=== PATIENT | female | born 1940 | race Caucasian/White ===

== ENCOUNTER 2016-12-21 10:44 | Emergency (ER) | payer MEDICARE ==
[~2016-12-21] VITALS: Ht 160 cm; Wt 67.0 kg
[~2016-12-21 10:44] MED LIST: ALBU8I INH; ALPR.25 PO; ASPI1TAB7 PO; ESTR42.5V VAGINAL; LISI-360 PO; METO50TA PO; SIMV20 PO; SPIRCAP INH
[2016-12-21 10:46] VITALS: BP 204/93; PULSE 59; RESP 16; TEMP 98.4; O2SAT 96
[2016-12-21] MEDS ORDERED: SODIUM CHLORIDE 0.9% FLUSH 10 ML FLUSH IVF PRN (11:45)
[2016-12-21] MEDS ORDERED: SODIUM CHLOR 0.9% 1000 ML INJ 1,000 ML IV ONE (11:45)
--- NOTE | 2016-12-21 11:51 | PD ---
HPI Chief Complaint: Cold / Flu Symptoms Time Seen by Provider: 11:17 Travel History International Travel<30 days: No Contact w/Intl Traveler<30days: No Traveled to known affect area: No History of Present Illness HPI Patient is 76-year-old female with history of anxiety, retention, hyperlipidemia , presents to emergency room with multiple complaints. Patient reports that she has had a subjective low-grade fever as well as nasal congestion, increased pulse rate and dysuria. Reports that she has been having increased watery eyes , reports "my eyes just burn," denies vision changes. Reports that her heart feels as if it's racing - she does have history of anxiety and does take xanax for her anxiety. Reports that she is anxious as she has not been feeling well for the past few weeks and has not been able to see her primary care doctor. Patient denies any sick contacts at this time. Reports that she has been eating and drinking like her normal self. Reports that she has been having intermittent dizziness, denies any chest pain and denies shortness of breath. Patient denies any cough, denies any abdominal pain, nausea or vomiting. Patient reports that she is also noticed dysuria, with urinary urgency and frequency, patient concerned for possible UTI. PFSH Past Medical History Anxiety: Yes Cardiac Catheterization: Yes (8 YRS AGO) Cardiovascular Problems: Yes (HYPERTENSION) High Cholesterol: Yes COPD: Yes Diminished Hearing: No Hypertension: Yes Respiratory: Yes (COPD) Immunizations Current: No ?: Not Past Surgical History Section: Yes (2) Hysterectomy: Yes Other Surgery: Yes (NEGATIVE HEART CATH 5 TO 6 YEARS AGO) Social History Alcohol Use: Yes (SOC) Tobacco Use: No Substance Use: No Allergies-Medications (Allergen,Severity, Reaction): Coded Allergies: No Known Allergies (Unverified , 12/21/16) Reported Meds & Prescriptions Reported Meds & Active Scripts Active Reported Symbicort Inh (Budesonide/Formoterol Fumarate) 160-4.5 Mcg/Act Aero 2 Puff INH DAILY Zocor (Simvastatin) 20 Mg Tab 20 Mg PO HS Lopressor (Metoprolol Tartrate) 50 Mg Tab 50 Mg PO BID Lisinopril 10 Mg Tab 10 Mg PO HS Aspirin Adult Low Strength (Aspirin) 81 Mg Tabdr 81 Mg PO DAILY Alprazolam 0.25 Mg Tab 0.25 Mg PO QID Ventolin Hfa 18 GM Inh (Albuterol Sulfate) 90 Mcg/Act Aer 2 Puff INH Q4H PRN Review of Systems General / Constitutional: Positive: Fever (subjective fevers), No: Chills Eyes: No: Visual changes HENT: Positive: Congestion, No: Headaches, Lightheadedness, Sore Throat, Neck Pain Cardiovascular: Positive: Palpitations, No: Chest Pain or Discomfort Respiratory: No: Cough, Shortness of Breath Gastrointestinal: No: Nausea, Vomiting, Diarrhea, Abdominal Pain Genitourinary: Positive: Urgency, Frequency, Dysuria, No: Nocturia, Hematuria Musculoskeletal: No: Pain Skin: No Rash Neurologic: Positive: Weakness, Dizziness, No: Headache Psychiatric: No: Depression Endocrine: No: Polydipsia Hematologic/Lymphatic: No: Easy Bruising Physical Exam Narrative GENERAL: NAD, Nontoxic SKIN: Focused skin assessment warm/dry. HEAD: Atraumatic. Normocephalic. EYES: Pupils equal and round. No scleral icterus. No injection or drainage. ENT: No nasal bleeding or discharge. Mucous membranes pink and moist. NECK: Trachea midline. No JVD. CARDIOVASCULAR: Regular rate and rhythm. No murmur appreciated. RESPIRATORY: No accessory muscle use. Clear to auscultation. Breath sounds equal bilaterally. GASTROINTESTINAL: Abdomen soft, non-tender, nondistended. Hepatic and splenic margins not palpable. MUSCULOSKELETAL: No obvious deformities. No clubbing. No cyanosis. No edema. NEUROLOGICAL: Awake and alert. No obvious cranial nerve deficits. Motor grossly within normal limits. Normal speech. CN 2-12 grossly intact with no neurological deficits PSYCHIATRIC: Appropriate mood and affect; insight and judgment normal. Data Data Last Documented VS Vital Signs Date Time Temp Pulse Resp B/P (MAP) Pulse Ox O2 Delivery O2 Flow Rate FiO2 12/21/16 10:46 98.4 59 16 204/93 (130) 96 Orders Orders Electrocardiogram (12/21/16 11:34) Complete Blood Count With Diff (12/21/16 11:34) Comprehensive Metabolic Panel (12/21/16 11:34) Influenzae A/B Antigen (12/21/16 11:34) Chest, Single Ap (12/21/16 11:34) Ecg Monitoring (12/21/16 11:34) Iv Access Insert/Monitor (12/21/16 11:34) Oximetry (12/21/16 11:34) Sodium Chloride 0.9% Flush (Ns Flush) (12/21/16 11:45) Urinalysis - C+S If Indicated (12/21/16 11:34) Ct Brain W/O Iv Contrast(Rout) (12/21/16 11:34) Sodium Chlor 0.9% 1000 Ml Inj (Ns 1000 M (12/21/16 11:45) Thyroid Stimulating Hormone (12/21/16 11:34) Labs Laboratory Tests Test 12/21/16 12:05 12/21/16 12:09 Urine Color LIGHT-YELLOW Urine Turbidity CLEAR Urine pH 7.0 Urine Specific [place] 1.010 Urine Protein NEG mg/dL Urine Glucose (UA) NEG mg/dL Urine Ketones NEG mg/dL Urine Occult Blood NEG Urine Nitrite NEG Urine Bilirubin NEG Urine Urobilinogen LESS THAN 2.0 MG/DL Urine Leukocyte Esterase NEG Urine RBC LESS THAN 1 /hpf Microscopic Urinalysis Comment CULT NOT INDICATED White Blood Count 8.3 TH/MM3 Red Blood Count 5.09 MIL/MM3 Hemoglobin 15.9 GM/DL Hematocrit 47.2 % Mean Corpuscular Volume 92.6 FL Mean Corpuscular Hemoglobin 31.2 PG Mean Corpuscular Hemoglobin Concent 33.7 % Red Cell Distribution Width 13.0 % Platelet Count 257 TH/MM3 Mean Platelet Volume 9.2 FL Neutrophils (%) (Auto) 80.4 % Lymphocytes (%) (Auto) 13.1 % Monocytes (%) (Auto) 5.7 % Eosinophils (%) (Auto) 0.4 % Basophils (%) (Auto) 0.4 % Neutrophils # (Auto) 6.6 TH/MM3 Lymphocytes # (Auto) 1.1 TH/MM3 Monocytes # (Auto) 0.5 TH/MM3 Eosinophils # (Auto) 0.0 TH/MM3 Basophils # (Auto) 0.0 TH/MM3 CBC Comment DIFF FINAL Differential Comment Blood Urea Nitrogen 12 MG/DL Creatinine 0.94 MG/DL Random Glucose 101 MG/DL Total Protein 8.4 GM/DL Albumin 4.7 GM/DL Calcium Level 9.7 MG/DL Alkaline Phosphatase 95 U/L Aspartate Amino Transf (AST/SGOT) 22 U/L Alanine Aminotransferase (ALT/SGPT) 28 U/L Total Bilirubin 0.7 MG/DL Sodium Level 138 MEQ/L Potassium Level 3.8 MEQ/L Chloride Level 104 MEQ/L Carbon Dioxide Level 29.8 MEQ/L Anion Gap 4 MEQ/L Estimat Glomerular Filtration Rate 58 ML/MIN Thyroid Stimulating Hormone 3rd Gen 1.200 uIU/ML MDM Medical Decision Making Medical Screen Exam Complete: Yes Emergency Medical Condition: Yes Medical Record Reviewed: Yes Interpretation(s) EKG 1234: Sinus edilia at 57bpm, qt/qtc: 459/425, no acute st or t wave changes Vital Signs Date Time Temp Pulse Resp B/P (MAP) Pulse Ox O2 Delivery O2 Flow Rate FiO2 12/21/16 10:46 98.4 59 16 204/93 (130) 96 Differential Diagnosis Differential includes viral syndrome, influenza, pneumonia, abnormal TSH, anxiety reaction, electrolyte abnormality, tia/cva though unlikely, uti, acs, arrhythmia Narrative Course 76-year-old female who presents to emergency room for evaluation of generalized weakness with low-grade fevers, cold congestion, increased pulse rate and dysuria. Patient was placed on a cardiovascular operating room nurse upon arrival to the emergency room. CT of the head ordered, basic blood work ordered as well as TSH to evaluate her tachycardia and to evaluate for electrolyte abnormalities. UA ordered to evaluate for possible UTI. An IV line was established. Will give IVF and monitor patient. Vital Signs Date Time Temp Pulse Resp B/P (MAP) Pulse Ox O2 Delivery O2 Flow Rate FiO2 12/21/16 10:46 98.4 59 16 204/93 (130) 96 Laboratory Tests Test 12/21/16 12:05 12/21/16 12:09 Urine Color LIGHT-YELLOW (YELLW/STRAW) Urine Turbidity CLEAR (CLEAR) Urine pH 7.0 (5.0-8.5) Urine Specific [place] 1.010 (1.002-1.035) Urine Protein NEG mg/dL (NEG-TRACE) Urine Glucose (UA) NEG mg/dL (NEG) Urine Ketones NEG mg/dL (NEG) Urine Occult Blood NEG (NEG) Urine Nitrite NEG (NEG) Urine Bilirubin NEG (NEG) Urine Urobilinogen LESS THAN 2.0 MG/DL (LESS Urine Leukocyte Esterase NEG (NEG) Urine RBC LESS THAN 1 /hpf (0-3) Microscopic Urinalysis Comment CULT NOT INDICATED White Blood Count 8.3 TH/MM3 (4.0-11.0) Red Blood Count 5.09 MIL/MM3 (4.00-5.30) Hemoglobin 15.9 GM/DL (11.6-15.3) Hematocrit 47.2 % (35.0-46.0) Mean Corpuscular Volume 92.6 FL (80.0-100.0) Mean Corpuscular Hemoglobin 31.2 PG (27.0-34.0) Mean Corpuscular Hemoglobin Concent 33.7 % (32.0-36.0) Red Cell Distribution Width 13.0 % (11.6-17.2) Platelet Count 257 TH/MM3 (150-450) Mean Platelet Volume 9.2 FL (7.0-11.0) Neutrophils (%) (Auto) 80.4 % (16.0-70.0) Lymphocytes (%) (Auto) 13.1 % (9.0-44.0) Monocytes (%) (Auto) 5.7 % (0.0-8.0) Eosinophils (%) (Auto) 0.4 % (0.0-4.0) Basophils (%) (Auto) 0.4 % (0.0-2.0) Neutrophils # (Auto) 6.6 TH/MM3 (1.8-7.7) Lymphocytes # (Auto) 1.1 TH/MM3 (1.0-4.8) Monocytes # (Auto) 0.5 TH/MM3 (0-0.9) Eosinophils # (Auto) 0.0 TH/MM3 (0-0.4) Basophils # (Auto) 0.0 TH/MM3 (0-0.2) CBC Comment DIFF FINAL Differential Comment Blood Urea Nitrogen 12 MG/DL (7-18) Creatinine 0.94 MG/DL (0.50-1.00) Random Glucose 101 MG/DL (74-106) Total Protein 8.4 GM/DL (6.4-8.2) Albumin 4.7 GM/DL (3.4-5.0) Calcium Level 9.7 MG/DL (8.5-10.1) Alkaline Phosphatase 95 U/L (45-117) Aspartate Amino Transf (AST/SGOT) 22 U/L (15-37) Alanine Aminotransferase (ALT/SGPT) 28 U/L (10-53) Total Bilirubin 0.7 MG/DL (0.2-1.0) Sodium Level 138 MEQ/L (136-145) Potassium Level 3.8 MEQ/L (3.5-5.1) Chloride Level 104 MEQ/L (98-107) Carbon Dioxide Level 29.8 MEQ/L (21.0-32.0) Anion Gap 4 MEQ/L (5-15) Estimat Glomerular Filtration Rate 58 ML/MIN (>89) Thyroid Stimulating Hormone 3rd Gen 1.200 uIU/ML (0.358-3.740) Last Impressions Head CT 12/21/161133 Signed Impressions: Service Date/Time: Wednesday, December 21, 2016 12:46 - CONCLUSION: Normal examination. Fernando Rivas MD Chest X-Ray 12/21/161133 Signed Impressions: Service Date/Time: Wednesday, December 21, 2016 11:52 - CONCLUSION: 1. Stable examination with mild biapical hyperinflation but no acute infiltrate. 2. Chondroid type calcification projecting over the proximal right humerus is unchanged and likely benign. Michael Moreno MD Reviewed all labs and all studies with patient in detail, all incidental findings reviewed. She has remained bradycardic and not tachycardic throughout ER visit. Patient with most likely viral syndrome as well as anxiety reaction. Patient at time suffers no medical emergency room, patient will follow up with her primary care doctor and will return to ER as needed. Diagnosis Primary Impression: Viral syndrome Additional Impression: Anxiety Patient Instructions: General Instructions Additional Instructions: Please provide patient with a copy of their lab work and studies at discharge* * Please follow up with your primary care doctor in 2-3 days Return to the ER if symptoms worsen or progress Return to the ER as needed Please drink plenty of fluids Disposition: 01 DISCHARGE HOME Condition: Stable MartinezPolly DO Dec 21, 2016 11:51
--- NOTE | 2016-12-21 12:08 | RADRPT ---
EXAM DATE/TIME: 12/21/2016 11:52 [facility] COMPARISON: CHEST SINGLE AP, October 03, 2013, 21:40. INDICATIONS : fever, short of breath MEDICAL HISTORY : Chronic obstructive pulmonary disease. aortic aneurysm SURGICAL HISTORY : None. ENCOUNTER: Initial ACUITY: 1 day PAIN SCORE: 0/10 LOCATION: Bilateral chest FINDINGS: A single view of the chest demonstrates the lungs to be symmetrically aerated with mild hyperinflatio n in the apices. No confluent infiltrate or effusion. Heart size is upper limits of normal. Osseous s tructures are intact with a benign-appearing chondroid type calcification projecting over the proxima l right humerus. CONCLUSION: 1. Stable examination with mild biapical hyperinflation but no acute infiltrate. 2. Chondroid type calcification projecting over the proximal right humerus is unchanged and likely be nign. Michael Moreno MD on December 21, 2016 at 12:05 Board Certified Radiologist. This report was verified electronically.
[2016-12-21] MEDS ORDERED: ZOCO20TA PO (12:26)
[2016-12-21] MEDS ORDERED: METO-309 PO (12:26)
[2016-12-21] MEDS ORDERED: SYMB160A INH (12:26)
[2016-12-21] MEDS ORDERED: VENTAER INH (12:26)
[2016-12-21] MEDS ORDERED: ASPI1TAB91 PO (12:26)
[2016-12-21] MEDS ORDERED: ALPR0.25 PO (12:26)
[2016-12-21] MEDS ORDERED: LISI10TA3 PO (12:26)
[2016-12-21 12:27] LABS: AUTOMATED NEUTROPHIL # 6.6 TH/MM3 (1.8-7.7); BASOPHIL % 0.4 % (0.0-2.0); EOSINOPHIL % 0.4 % (0.0-4.0); HEMATOCRIT 47.2 % (35.0-46.0); HEMOGLOBIN 15.9 GM/DL (11.6-15.3); LYMPH % 13.1 % (9.0-44.0); LYMPHOCYTE # 1.1 TH/MM3 (1.0-4.8); MEAN CELL VOLUME 92.6 FL (80.0-100.0); MEAN CORPUSCULAR HEMOGLOBIN 31.2 PG (27.0-34.0); MEAN CORPUSCULAR HGB CONC 33.7 % (32.0-36.0); MEAN PLATELET VOLUME 9.2 FL (7.0-11.0); MONO % 5.7 % (0.0-8.0); MONOCYTE # 0.5 TH/MM3 (0-0.9); NEUT % 80.4 % (16.0-70.0); PLATELET COUNT 257 TH/MM3 (150-450); RED BLOOD COUNT 5.09 MIL/MM3 (4.00-5.30); WHITE BLOOD COUNT 8.3 TH/MM3 (4.0-11.0)
[2016-12-21 12:36] LABS: BILIRUBIN, URINE NEG (NEG); BLOOD, URINE NEG (NEG); GLUCOSE,URINE NEG (NEG); KETONE, URINE NEG (NEG); NITRITE,URINE NEG (NEG); URINE COLOR LIGHT-YELLOW (YELLW/STRAW); URINE LEUKOCYTE ESTERASE NEG (NEG)
--- NOTE | 2016-12-21 12:59 | RADRPT ---
EXAM DATE/TIME: 12/21/2016 12:46 [facility] COMPARISON: No previous studies available for comparison. INDICATIONS : Blurred vision, dizziness. RADIATION DOSE: 34.29 CTDIvol (mGy) MEDICAL HISTORY : Hypertension. SURGICAL HISTORY : Hysterectomy. ENCOUNTER: Initial ACUITY: 1 day PAIN SCALE: 0/10 LOCATION: cranial TECHNIQUE: Multiple contiguous axial images were obtained of the head. Using automated exposure control and adj ustment of the mA and/or kV according to patient size, radiation dose was kept as low as reasonably a chievable to obtain optimal diagnostic quality images. DICOM format image data is available electro nically for review and comparison. FINDINGS: CEREBRUM: The ventricles are normal for age. No evidence of midline shift, mass lesion, hemorrhage or acute in farction. No extra-axial fluid collections are seen. POSTERIOR FOSSA: The cerebellum and brainstem are intact. The 4th ventricle is midline. The cerebellopontine angle i s unremarkable. EXTRACRANIAL: The visualized portion of the orbits is intact. SKULL: The calvaria is intact. No evidence of skull fracture. CONCLUSION: Normal examination. Fernando Rivas MD on December 21, 2016 at 12:56 Board Certified Radiologist. This report was verified electronically.
[2016-12-21 13:00] LABS: ALBUMIN 4.7 GM/DL (3.4-5.0); ALT (GPT) 28 U/L (10-53); AST (GOT) 22 U/L (15-37); BICARBONATE 29.8 MEQ/L (21.0-32.0); BLOOD UREA NITROGEN 12 MG/DL (7-18); CALCIUM 9.7 MG/DL (8.5-10.1); CHLORIDE 104 MEQ/L (98-107); CREATININE 0.94 MG/DL (0.50-1.00); GLOMERULAR FILTRATION RATE 58 ML/MIN (>89); GLUCOSE,RANDOM 101 MG/DL (74-106); SODIUM (NA) 138 MEQ/L (136-145)
[2016-12-21 13:09] LABS: ALKALINE PHOSPHATASE 95 U/L (45-117); TOTAL BILIRUBIN ADULT 0.7 MG/DL (0.2-1.0); TOTAL PROTEIN 8.4 GM/DL (6.4-8.2)
[2016-12-21 14:05] VITALS: BP 186/88; PULSE 56; RESP 15; O2SAT 100
--- NOTE | 2016-12-22 15:46 | EKG ---
Date Performed: 12/21/2016 Time Performed: 12:34:04 PTAGE: 76 years EKG: SINUS BRADYCARDIA BORDERLINE ECG Compared to prior tracing no significant change PREVIOUS TRACING : 10/03/2013 20.59.30 DOCTOR: Hugo Webber Interpretating Date/Time 12/22/2016 15:44:14
== END 2016-12-21 15:17 | disposition home or self-care (01) ==
LOC: NEPD 10:44
DX: B34.9 Viral infection, unspecified (principal); F41.9 Anxiety disorder, unspecified; R00.1 Bradycardia, unspecified
CPT/HCPCS: 70450; 71010; 80053; 81001; 84443; 85025; 87804; 93005; 99285; J7030

== ENCOUNTER 2017-03-02 12:31 | Observation (INO) | payer MEDICARE ==
[~2017-03-02] VITALS: Ht 162.6 cm; Wt 65.9 kg
[2017-03-02] VITALS (9 sets, daily range): BP systolic 104–199; BP diastolic 55–91; PULSE 54–70; RESP 14–18; TEMP 97.7–98.7; O2SAT 96–99
[~2017-03-02 12:31] MED LIST changes: -ALBU8I INH; -ALPR.25 PO; +ALPR0.25 PO; -ASPI1TAB7 PO; +ASPI81TA16 PO; -ESTR42.5V VAGINAL; -LISI-360 PO; +LISI10TA3 PO; +METO-309 PO; -METO50TA PO; -SIMV20 PO; -SPIRCAP INH; +SYMB160A INH; +VENTAER INH; +ZOCO20TA PO
--- NOTE | 2017-03-02 12:59 | PD ---
HPI Chief Complaint: Chest Pain Time Seen by Provider: 12:43 Travel History International Travel<30 days: No Contact w/Intl Traveler<30days: No Traveled to known affect area: No History of Present Illness HPI 76-year-old female with history of anxiety presents to emergency department complaining of left mid axillary sharp chest pain with radiation to the left arm for approximately 1 week. Patient states in addition, her hands are "numb" . The pain is relieved with laying flat with the legs elevated. Says she has felt more short of breath recently. Denies chronic medical issues except for hypertension and anxiety. States he has had some "dizziness" as well and may have a urinary tract infection. States she has been evaluated for this urinary tract infection and dysuria but has not been diagnosed with urinary tract infection. Patient denies a cardiac history. Says she does have increased anxiety and thinks that her anxiety medication should be changed. States she has been taking the same dose of Xanax for "many years". PFSH Past Medical History Anxiety: Yes Cardiac Catheterization: Yes (8 YRS AGO) Cardiovascular Problems: Yes (HTN) High Cholesterol: Yes COPD: Yes Diminished Hearing: No Hypertension: Yes Respiratory: Yes (COPD) Immunizations Current: No Past Surgical History Section: Yes (2) Hysterectomy: Yes Other Surgery: Yes (NEGATIVE HEART CATH 5 TO 6 YEARS AGO) Social History Alcohol Use: No (SOC) Tobacco Use: No Substance Use: No Allergies-Medications (Allergen,Severity, Reaction): Coded Allergies: No Known Allergies (Unverified Allergy, Unknown, 03/02/17) Reported Meds & Prescriptions Reported Meds & Active Scripts Active Reported Zocor (Simvastatin) 20 Mg Tab 20 Mg PO HS Lopressor (Metoprolol Tartrate) 50 Mg Tab 50 Mg PO BID Lisinopril 10 Mg Tab 10 Mg PO HS Aspirin Adult Low Strength (Aspirin) 81 Mg Tabdr 81 Mg PO DAILY Alprazolam 0.25 Mg Tab 0.25 Mg PO QID Ventolin Hfa 18 GM Inh (Albuterol Sulfate) 90 Mcg/Act Aer 2 Puff INH Q4H PRN Review of Systems Except as stated in HPI: all other systems reviewed are Neg Physical Exam Narrative GENERAL: Well-nourished in no apparent distress, anxious however SKIN: Focused skin assessment warm/dry. HEAD: Atraumatic. Normocephalic. EYES: Pupils equal and round. No scleral icterus. No injection or drainage. ENT: No nasal bleeding or discharge. Mucous membranes pink and moist. NECK: Trachea midline. No JVD. CARDIOVASCULAR: Regular rate and rhythm. No murmur appreciated. RESPIRATORY: No accessory muscle use. Clear to auscultation. Breath sounds equal bilaterally. GASTROINTESTINAL: Abdomen soft, non-tender, nondistended. MUSCULOSKELETAL: No obvious deformities. No clubbing. No cyanosis. No edema. Chest pain not reproducible upon palpation NEUROLOGICAL: Awake and alert. No obvious cranial nerve deficits. Motor grossly within normal limits. Normal speech. PSYCHIATRIC: Appropriate mood and affect; insight and judgment normal. Data Data Last Documented VS Vital Signs Date Time Temp Pulse Resp B/P (MAP) Pulse Ox O2 Delivery O2 Flow Rate FiO2 03/02/17 12:33 98.7 70 14 184/81 (115) [address] Cerv Spine W/O Contrast (03/02/17 ) Ct Brain W/O Iv Contrast(Rout) (03/02/17 ) Electrocardiogram (03/02/17 12:55) Ckmb (Isoenzyme) Profile (03/02/17 12:55) Complete Blood Count With Diff (03/02/17 12:55) Comprehensive Metabolic Panel (03/02/17 12:55) D-Dimer (03/02/17 12:55) Magnesium (Mg) (03/02/17 12:55) Prothrombin Time / Inr (Pt) (03/02/17 12:55) Act Partial Throm Time (Ptt) (03/02/17 12:55) Troponin I (03/02/17 12:55) Lipase (03/02/17 12:55) Aspirin Chew (Aspirin Chew) (03/02/17 13:00) Sodium Chlorid 0.9% 500 Ml Inj (Ns 500 M (03/02/17 13:00) Chest, Pa & Lat (03/02/17 12:55) Urinalysis - C+S If Indicated (03/02/17 12:59) Activity Bed Rest With Brp (03/02/17 14:30) Vital Signs (Adult) Q4H (03/02/17 14:30) Cardiac Rhythm .As Directed (03/02/17 14:30) Notify Dr: Other .PRN (03/02/17 14:30) Notify Dr. Parameters (03/02/17 14:30) Resp Oxygen Nasal Cannula (03/02/17 ) Ckmb (Isoenzyme) Profile (03/02/17 16:10) Ckmb (Isoenzyme) Profile (03/02/17 19:10) Troponin I (03/02/17 16:10) Troponin I (03/02/17 19:10) Electrocardiogram (03/02/17 16:00) Electrocardiogram (03/02/17 19:00) ^ Obtain (03/02/17 14:30) Sodium Chloride 0.9% Flush (Ns Flush) (03/02/17 14:30) Sodium Chloride 0.9% Flush (Ns Flush) (03/02/17 21:00) Research Rn Spec / Telemetry [id number] (03/02/17 14:30) Admit Order (Ed Use Only) (03/02/17 14:30) Labs Laboratory Tests Test 03/02/17 13:10 03/02/17 13:20 White Blood Count 7.1 TH/MM3 Red Blood Count 4.78 MIL/MM3 Hemoglobin 15.1 GM/DL Hematocrit 42.7 % Mean Corpuscular Volume 89.3 FL Mean Corpuscular Hemoglobin 31.5 PG Mean Corpuscular Hemoglobin Concent 35.3 % Red Cell Distribution Width 13.3 % Platelet Count 254 TH/MM3 Mean Platelet Volume 9.0 FL Neutrophils (%) (Auto) 77.8 % Lymphocytes (%) (Auto) 15.1 % Monocytes (%) (Auto) 6.4 % Eosinophils (%) (Auto) 0.4 % Basophils (%) (Auto) 0.3 % Neutrophils # (Auto) 5.5 TH/MM3 Lymphocytes # (Auto) 1.1 TH/MM3 Monocytes # (Auto) 0.5 TH/MM3 Eosinophils # (Auto) 0.0 TH/MM3 Basophils # (Auto) 0.0 TH/MM3 CBC Comment AUTO DIFF Differential Comment AUTO DIFF CONFIRMED Platelet Estimate NORMAL Platelet Morphology Comment NORMAL Red Cell Morphology Comment NORMAL Prothrombin Time 10.1 SEC Prothromb Time International Ratio 1.0 RATIO Activated Partial Thromboplast Time 27.3 SEC D-Dimer Quantitative (PE/DVT) 0.24 MG/L FEU Blood Urea Nitrogen 13 MG/DL Creatinine 0.88 MG/DL Random Glucose 108 MG/DL Total Protein 7.1 GM/DL Albumin 4.1 GM/DL Calcium Level 9.2 MG/DL Magnesium Level 2.2 MG/DL Alkaline Phosphatase 75 U/L Aspartate Amino Transf (AST/SGOT) 23 U/L Alanine Aminotransferase (ALT/SGPT) 23 U/L Total Bilirubin 0.7 MG/DL Sodium Level 140 MEQ/L Potassium Level 3.6 MEQ/L Chloride Level 105 MEQ/L Carbon Dioxide Level 28.3 MEQ/L Anion Gap 7 MEQ/L Estimat Glomerular Filtration Rate 63 ML/MIN Total Creatine Kinase 63 U/L Troponin I LESS THAN 0.02 NG/ML Lipase 183 U/L Urine Color YELLOW Urine Turbidity CLEAR Urine pH 5.5 Urine Specific [place] 1.016 Urine Protein NEG mg/dL Urine Glucose (UA) NEG mg/dL Urine Ketones 10 mg/dL Urine Occult Blood NEG Urine Nitrite NEG Urine Bilirubin NEG Urine Urobilinogen LESS THAN 2.0 MG/DL Urine Leukocyte Esterase NEG Urine RBC 1 /hpf Urine WBC 1 /hpf Urine Bacteria RARE /hpf Urine Mucus FEW /lpf Microscopic Urinalysis Comment CULT NOT INDICATED MDM Medical Decision Making Medical Screen Exam Complete: Yes Emergency Medical Condition: Yes Differential Diagnosis Atypical chest pain, angina, panic attack, anxiety,PE Narrative Course 76-year-old female with history of anxiety presents to emergency department complaining of left mid axillary sharp chest pain with radiation to the left arm for approximately 1 week. Patient states in addition, her hands are "numb" . The pain is relieved with laying flat with the legs elevated. Says she has felt more short of breath recently. Denies chronic medical issues except for hypertension and anxiety. States he has had some "dizziness" as well and may have a urinary tract infection. States she has been evaluated for this urinary tract infection and dysuria but has not been diagnosed with urinary tract infection. Patient denies a cardiac history. Says she does have increased anxiety and thinks that her anxiety medication should be changed. States she has been taking the same dose of Xanax for "many years". Review of the EMR demonstrates- stress test completed in 2013 appeared to be normal. Vital signs stable. Last Impressions Chest X-Ray 03/02/17 1255 Signed Impressions: Service Date/Time: Thursday, March 02, 2017 13:44 - CONCLUSION: No acute disease. Tam Daniel MD Head CT 03/02/17 0000 Signed Impressions: Service Date/Time: Thursday, March 02, 2017 13:31 - CONCLUSION: Unremarkable study. Holly Becerril MD Cervical Spine CT 03/02/17 0000 Signed Impressions: Service Date/Time: Thursday, March 02, 2017 13:31 - CONCLUSION: Slight neural foramina compromise right C5-C6. Holly Becerril MD Laboratory Tests Test 03/02/17 13:10 03/02/17 13:20 White Blood Count 7.1 TH/MM3 Red Blood Count 4.78 MIL/MM3 Hemoglobin 15.1 GM/DL Hematocrit 42.7 % Mean Corpuscular Volume 89.3 FL Mean Corpuscular Hemoglobin 31.5 PG Mean Corpuscular Hemoglobin Concent 35.3 % Red Cell Distribution Width 13.3 % Platelet Count 254 TH/MM3 Mean Platelet Volume 9.0 FL Neutrophils (%) (Auto) 77.8 % Lymphocytes (%) (Auto) 15.1 % Monocytes (%) (Auto) 6.4 % Eosinophils (%) (Auto) 0.4 % Basophils (%) (Auto) 0.3 % Neutrophils # (Auto) 5.5 TH/MM3 Lymphocytes # (Auto) 1.1 TH/MM3 Monocytes # (Auto) 0.5 TH/MM3 Eosinophils # (Auto) 0.0 TH/MM3 Basophils # (Auto) 0.0 TH/MM3 CBC Comment AUTO DIFF Differential Comment AUTO DIFF CONFIRMED Platelet Estimate NORMAL Platelet Morphology Comment NORMAL Red Cell Morphology Comment NORMAL Prothrombin Time 10.1 SEC Prothromb Time International Ratio 1.0 RATIO Activated Partial Thromboplast Time 27.3 SEC D-Dimer Quantitative (PE/DVT) 0.24 MG/L FEU Blood Urea Nitrogen 13 MG/DL Creatinine 0.88 MG/DL Random Glucose 108 MG/DL Total Protein 7.1 GM/DL Albumin 4.1 GM/DL Calcium Level 9.2 MG/DL Magnesium Level 2.2 MG/DL Alkaline Phosphatase 75 U/L Aspartate Amino Transf (AST/SGOT) 23 U/L Alanine Aminotransferase (ALT/SGPT) 23 U/L Total Bilirubin 0.7 MG/DL Sodium Level 140 MEQ/L Potassium Level 3.6 MEQ/L Chloride Level 105 MEQ/L Carbon Dioxide Level 28.3 MEQ/L Anion Gap 7 MEQ/L Estimat Glomerular Filtration Rate 63 ML/MIN Total Creatine Kinase 63 U/L Troponin I LESS THAN 0.02 NG/ML Lipase 183 U/L Urine Color YELLOW Urine Turbidity CLEAR Urine pH 5.5 Urine Specific [place] 1.016 Urine Protein NEG mg/dL Urine Glucose (UA) NEG mg/dL Urine Ketones 10 mg/dL Urine Occult Blood NEG Urine Nitrite NEG Urine Bilirubin NEG Urine Urobilinogen LESS THAN 2.0 MG/DL Urine Leukocyte Esterase NEG Urine RBC 1 /hpf Urine WBC 1 /hpf Urine Bacteria RARE /hpf Urine Mucus FEW /lpf Microscopic Urinalysis Comment CULT NOT INDICATED Initial cardiac enzymes negative. I feel this may be related to anxiety however , patient is 76 years old and a poor historian. I'm concerned that there may be a cardiac component to her complaints today. Pt will be admitted to the chest pain center. Diagnosis Primary Impression: Atypical chest pain Additional Impression: Anxiety Admitting Information Admitting Physician Requests: Observation Condition: Stable Khushboo Sousa Mar 02, 2017 12:59
[2017-03-02] MEDS ORDERED: SODIUM CHLORID 0.9% 500 ML INJ 500 ML IV ONE (13:00)
[2017-03-02] MEDS ORDERED: ASPIRIN 81 MG CHEW TAB PO ONE (13:00)
[2017-03-02 13:21] LABS: AUTOMATED NEUTROPHIL # 5.5 TH/MM3 (1.8-7.7); BASOPHIL % 0.3 % (0.0-2.0); EOSINOPHIL % 0.4 % (0.0-4.0); HEMATOCRIT 42.7 % (35.0-46.0); HEMOGLOBIN 15.1 GM/DL (11.6-15.3); LYMPH % 15.1 % (9.0-44.0); LYMPHOCYTE # 1.1 TH/MM3 (1.0-4.8); MEAN CELL VOLUME 89.3 FL (80.0-100.0); MEAN CORPUSCULAR HEMOGLOBIN 31.5 PG (27.0-34.0); MEAN CORPUSCULAR HGB CONC 35.3 % (32.0-36.0); MONO % 6.4 % (0.0-8.0); MONOCYTE # 0.5 TH/MM3 (0-0.9); NEUT % 77.8 % (16.0-70.0); PLATELET COUNT 254 TH/MM3 (150-450); RED BLOOD COUNT 4.78 MIL/MM3 (4.00-5.30); RED CELL DISTRIBUTION WIDTH 13.3 % (11.6-17.2); WHITE BLOOD COUNT 7.1 TH/MM3 (4.0-11.0)
[2017-03-02 13:33] LABS: PROTHROMBIN TIME - PATIENT 10.1 SEC (9.8-11.6)
[2017-03-02 13:34] LABS: D-DIMER 0.24 MG/L FEU (0.00-0.50)
[2017-03-02 13:35] LABS: ALBUMIN 4.1 GM/DL (3.4-5.0); ALT (GPT) 23 U/L (10-53); AST (GOT) 23 U/L (15-37); BICARBONATE 28.3 MEQ/L (21.0-32.0); BLOOD UREA NITROGEN 13 MG/DL (7-18); CALCIUM 9.2 MG/DL (8.5-10.1); CHLORIDE 105 MEQ/L (98-107); CREATININE 0.88 MG/DL (0.50-1.00); GLOMERULAR FILTRATION RATE 63 ML/MIN (>89); GLUCOSE,RANDOM 108 MG/DL (74-106); LIPASE 183 U/L (73-393); MAGNESIUM 2.2 MG/DL (1.5-2.5); SODIUM (NA) 140 MEQ/L (136-145)
[2017-03-02 13:39] LABS: BACTERIA, URINE RARE /hpf; BILIRUBIN, URINE NEG (NEG); BLOOD, URINE NEG (NEG); GLUCOSE,URINE NEG (NEG); KETONE, URINE 10 mg/dL (NEG); MUCUS URINE FEW /lpf (OCC); NITRITE,URINE NEG (NEG); PH, URINE 5.5 (5.0-8.5); URINE COLOR YELLOW (YELLW/STRAW); URINE LEUKOCYTE ESTERASE NEG (NEG)
[2017-03-02 13:39] LABS: ALKALINE PHOSPHATASE 75 U/L (45-117); TOTAL BILIRUBIN ADULT 0.7 MG/DL (0.2-1.0); TOTAL PROTEIN 7.1 GM/DL (6.4-8.2); TROPONIN I LESS THAN 0.02 NG/ML (0.02-0.05)
--- NOTE | 2017-03-02 13:40 | RADRPT ---
EXAM DATE/TIME: 03/02/2017 13:31 [facility] COMPARISON: No previous studies available for comparison. INDICATIONS : Left chest and arm pain for three days,dizziness. RADIATION DOSE: 33.81 CTDIvol (mGy) MEDICAL HISTORY : Hypertension. Chronic obstructive pulmonary disease. SURGICAL HISTORY : Hysterectomy. oophorectomy ENCOUNTER: Initial ACUITY: 3 days PAIN SCALE: 3/10 LOCATION: cranial TECHNIQUE: Multiple contiguous axial images were obtained of the head. Using automated exposure control and adjustment of the mA and/or kV according to patient size, radiation dose was kept as low as reasonably achievable to obtain optimal diagnostic quality images. DICOM format image data is av ailable electronically for review and comparison. FINDINGS: There is no evidence for intracranial hemorrhage, mass effect, mass lesions, edema, or extra-axial fl uid collections. The visualized bony structures appear intact. The ventricles are normal size for t he patient's age. There are no signs of acute infarction for technique. CONCLUSION: Unremarkable study. Holly Becerril MD on March 02, 2017 at 13:36 Board Certified Radiologist. This report was verified electronically.
--- NOTE | 2017-03-02 14:02 | RADRPT ---
EXAM DATE/TIME: 03/02/2017 13:31 [facility] COMPARISON: No previous studies available for comparison. INDICATIONS : Left chest and arm pain for three days RADIATION DOSE: 20.93 CTDIvol (mGy) MEDICAL HISTORY : Hypertension. Chronic obstructive pulmonary disease. SURGICAL HISTORY : Hysterectomy. oophorectomy ENCOUNTER: Initial ACUITY: 3 days PAIN SCALE: 3/10 LOCATION: Left neck TECHNIQUE: Volumetric scanning of the cervical spine was performed. Multiplanar reconstructions in the sagittal, coronal and oblique axial planes were performed. Using automated exposure control and adjustment o f the mA and/or kV according to patient size, radiation dose was kept as low as reasonably achievable to obtain optimal diagnostic quality images. DICOM format image data is available electronically f or review and comparison. FINDINGS: No definite fracture is seen for technique. There is a tiny subcentimeter bone island within seen in the right. C2-C3: There is no evidence for any significant compromise to the thecal sac, or the exiting nerve roots. N o appreciable thecal sac stenosis is seen. The neural foramina and lateral recess appear patent bila terally. C3-C4: There is no evidence for any significant compromise to the thecal sac, or the exiting nerve roots. N o appreciable thecal sac stenosis is seen. The neural foramina and lateral recess appear patent bila terally. C4-C5: There is no evidence for any significant compromise to the thecal sac, or the exiting nerve roots. N o appreciable thecal sac stenosis is seen. The neural foramina and lateral recess appear patent bila terally. C5-C6: Moderate degenarative changes are seen within the disc space and facets. There is slight neural vamshi amarilis compromise on the right due to asymmetrical bulging disc and hypertrophic changes. Slight bulging disc and hypertrophic changes are seen with indentation on the thecal sac and no significant comprom ise to the thecal sac. C6-C7: Slight degenarative changes are seen within the disc space and facets. Slight bulging disc and hypert rophic changes are seen with indentation on the thecal sac and no significant compromise to the theca l sac or the exiting nerve roots. C7-T1: There is no evidence for any significant compromise to the thecal sac, or the exiting nerve roots. N o appreciable thecal sac stenosis is seen. The neural foramina and lateral recess appear patent bila terally. CONCLUSION: Slight neural foramina compromise right C5-C6. KKesha Becerril MD on March 02, 2017 at 13:50 Board Certified Radiologist. This report was verified electronically.
--- NOTE | 2017-03-02 14:11 | RADRPT ---
EXAM DATE/TIME: 03/02/2017 13:44 [facility] COMPARISON: No previous studies available for comparison. INDICATIONS : Chest pain, short of breath. MEDICAL HISTORY : Hypertension. anxiety SURGICAL HISTORY : Hysterectomy. ENCOUNTER: Initial ACUITY: 1 day PAIN SCORE: 10/10 LOCATION: Bilateral chest FINDINGS: PA and lateral views of the chest demonstrate the lungs to be symmetrically aerated without evidence of mass, infiltrate or effusion. The cardiomediastinal contours are unremarkable. Osseous structure s are intact. CONCLUSION: No acute disease. Tam Daniel MD on March 02, 2017 at 14:09 Board Certified Radiologist. This report was verified electronically.
[2017-03-02] MEDS ORDERED: SODIUM CHLORIDE 0.9% FLUSH 10 ML FLUSH IV FLUSH PRN (14:30)
[2017-03-02] MEDS ORDERED: ACETAMINOPHEN 500 MG CPLT PO PRN (15:15)
[2017-03-02] MEDS ORDERED: ACETAMINOPHEN/HYDROcodone 325 MG/7.5 MG TAB PO PRN (15:15)
[2017-03-02] MEDS ORDERED: ONDANSETRON HCL 4 MG/2 ML VIAL IV PUSH PRN (15:15)
[2017-03-02] MEDS ORDERED: cloNIDine HCL 0.1 MG TAB PO PRN (15:15)
[2017-03-02] MEDS ORDERED: RESP: ALBUTEROL 2.5 MG/IPRATROPIUM 0.5 MG NEB (PRN) INH (15:15)
--- NOTE | 2017-03-02 15:26 | HHI.HP ---
[facility] Primary Care Physician Jason Kennedy MD Chief Complaint Chest pain and anxiety History of Present Illness This is a 76-year-old female history of hypertension, hyperlipidemia, anxiety that presents to ED with a complaint of chest pain and anxiety. Patient states that she has had chest pain every day for at least the last 3 years. She has noticed that the discomfort seems to occur more often when the Xanax wears off. States she takes Xanax 0.25 mg 4 times a day and has done so for several years. Also states that she has chest discomfort, she can take a Xanax and the discomfort will resolve within 30 minutes. The discomfort also seems be more intense when she has not taken Xanax as frequently as she is supposed to. She time the short of breath with the discomfort. Denies nausea or diaphoresis. When asked what brought her to the ED today patient states "today the discomfort was more intense." On average a discomfort as a 2-3 out of 10. This morning it was an 8-9 out of 10. Labs as a burning sensation and points to the left axillary region. States had a pure culture operator in [place] told her years ago that was related to anxiety after having a cardiac workup. States she was told by different pure culture operator a few years ago that it was likely anxiety after having a chemical stress test. I reviewed the records. She had a Lexiscan that was nonischemic at this facility in 2013. Date she was instructed to follow-up with a psychiatrist after that visit but has not done so. States she follows Dr. Rust for COPD as well as for primary care needs. Denies recent illnesses. Denies fevers or chills. Denies recent travel. Review of Systems General: Patient denies fevers, chills recent, and recent travel. HEENT: Patient denies headache, sore throat, difficulty swallowing. Cardiovascular: Has the chest discomfort as mentioned above. Denies sensation of heart beating rapidly or irregularly. No syncope. No diaphoresis. Respiratory: Denies shortness of breath or inspirational chest discomfort. Denies coughing wheezing or hemoptysis. GI: Patient denies nausea, vomiting, diarrhea, abdominal pain, bloody stools. Musculoskeletal: Patient denies joint pain or edema. Denies calf pain or edema. Neurovascular: Patient denies numbness, tingling, weakness in extremities. Denies headache. Endocrine: Denies polyuria and polydipsia. Hematologic: Denies easy bruising. Skin: Denies rash or itching. She states she has been very anxious. This is chronic. Denies suicidal homicidal ideations. Past Family Social History Allergies: Coded Allergies: No Known Allergies (Unverified Adverse Reaction, Unknown, 03/02/17) Past Medical History Hypertension, anxiety, hyperlipidemia, COPD, past tobacco abuse but quit smoking 15 years ago. Denies diabetes and CAD. Past Surgical History States she had a cardiac catheterization more than 10 years ago and that it was okay. She's a . Hysterectomy. Reported Medications Reported Meds & Active Scripts Active Reported Zocor (Simvastatin) 20 Mg Tab 20 Mg PO HS Lopressor (Metoprolol Tartrate) 50 Mg Tab 50 Mg PO BID Lisinopril 10 Mg Tab 10 Mg PO HS Aspirin Adult Low Strength (Aspirin) 81 Mg Tabdr 81 Mg PO DAILY Alprazolam 0.25 Mg Tab 0.25 Mg PO QID Ventolin Hfa 18 GM Inh (Albuterol Sulfate) 90 Mcg/Act Aer 2 Puff INH Q4H PRN Active Ordered Medications Current Medications Medications (Trade) Dose Ordered Sig/Heather Route Start Time Stop Time Status Last Admin (NS Flush) 2 ml UNSCH PRN IV FLUSH 03/02/17 14:30 (NS Flush) 2 ml BID IV FLUSH 03/02/17 21:00 Family History Denies family history of CAD. Social History She quit smoking cigarettes 15 years ago but prior that she smoked about a pack of cigarettes a day for 40 years. Has occasional glass of wine. Denies illicit drugs. She works part-time selling mobile homes. Physical Exam Vital Signs Vital Signs Date Time Temp Pulse Resp B/P (MAP) Pulse Ox O2 Delivery O2 Flow Rate FiO2 03/02/17 12:33 98.7 70 14 184/81 (115 97 Physical Exam GENERAL: This is a well-nourished, well-developed patient, in no apparent distress. Patient speaks in clear complete sentences. Patient is pleasant. HEENT: Head is atraumatic and normocephalic. Neck is supple without lymphadenopathy and trachea is midline. No JVD or carotid bruits. CARDIOVASCULAR: Regular rate and rhythm without murmurs, gallops, or rubs. RESPIRATORY: Clear to auscultation. Breath sounds equal bilaterally. No wheezes , rales, or rhonchi. Chest wall is nontender. No use of accessory muscles. GASTROINTESTINAL: Abdomen is nontender, nondistended. Abdomen soft. No obvious pulsatile mass or bruit. No CVA tenderness. Strong femoral pulses bilaterally. Normal bowel sounds in all quadrants. MUSCULOSKELETAL: Patient is moving upper and lower extremities freely. No calf tenderness or edema, no Homans sign. Strong pulses in upper and lower extremities. NEUROLOGICAL: Patient is alert and oriented. Cranial nerves 2-12 are grossly intact. No focal deficits and speech is clear. SKIN: No rash and turgor is normal. Laboratory Laboratory Tests Test 03/02/17 13:10 03/02/17 13:20 White Blood Count 7.1 Red Blood Count 4.78 Hemoglobin 15.1 Hematocrit 42.7 Mean Corpuscular Volume 89.3 Mean Corpuscular Hemoglobin 31.5 Mean Corpuscular Hemoglobin Concent 35.3 Red Cell Distribution Width 13.3 Platelet Count 254 Mean Platelet Volume 9.0 Neutrophils (%) (Auto) 77.8 Lymphocytes (%) (Auto) 15.1 Monocytes (%) (Auto) 6.4 Eosinophils (%) (Auto) 0.4 Basophils (%) (Auto) 0.3 Neutrophils # (Auto) 5.5 Lymphocytes # (Auto) 1.1 Monocytes # (Auto) 0.5 Eosinophils # (Auto) 0.0 Basophils # (Auto) 0.0 CBC Comment AUTO DIFF Differential Comment AUTO DIFF CONFIRMED Platelet Estimate NORMAL Platelet Morphology Comment NORMAL Red Cell Morphology Comment NORMAL Prothrombin Time 10.1 Prothromb Time International Ratio 1.0 Activated Partial Thromboplast Time 27.3 D-Dimer Quantitative (PE/DVT) 0.24 Blood Urea Nitrogen 13 Creatinine 0.88 Random Glucose 108 Total Protein 7.1 Albumin 4.1 Calcium Level 9.2 Magnesium Level 2.2 Alkaline Phosphatase 75 Aspartate Amino Transf (AST/SGOT) 23 Alanine Aminotransferase (ALT/SGPT) 23 Total Bilirubin 0.7 Sodium Level 140 Potassium Level 3.6 Chloride Level 105 Carbon Dioxide Level 28.3 Anion Gap 7 Estimat Glomerular Filtration Rate 63 Total Creatine Kinase 63 Troponin I LESS THAN 0.02 Lipase 183 Urine Color YELLOW Urine Turbidity CLEAR Urine pH 5.5 Urine Specific [place] 1.016 Urine Protein NEG Urine Glucose (UA) NEG Urine Ketones 10 Urine Occult Blood NEG Urine Nitrite NEG Urine Bilirubin NEG Urine Urobilinogen LESS THAN 2.0 Urine Leukocyte Esterase NEG Urine RBC 1 Urine WBC 1 Urine Bacteria RARE Urine Mucus FEW Microscopic Urinalysis Comment CULT NOT INDICATED Result Diagram: 03/02/17 1310 03/02/17 1310 Imaging Last 48 hours Impressions Chest X-Ray 03/02/17 1255 Signed Impressions: Service Date/Time: Thursday, March 02, 2017 13:44 - CONCLUSION: No acute disease. Tam Daniel MD Head CT 03/02/17 0000 Signed Impressions: Service Date/Time: Thursday, March 02, 2017 13:31 - CONCLUSION: Unremarkable study. Holly Becerril MD Cervical Spine CT 03/02/17 0000 Signed Impressions: Service Date/Time: Thursday, March 02, 2017 13:31 - CONCLUSION: Slight neural foramina compromise right C5-C6. Holly Becerril MD Course Initial EKG sinus rhythm rate of [address] segment depressions or elevation. There is a PVC noted. Caprini VTE Risk Assessment Caprini VTE Risk Assessment: Mod/High Risk (score >= 2) Caprini Risk Assessment Model Point Value = 1 Point Value = 2 Point Value = 3 Point Value = 5 Age 41-60 Minor surgery BMI > 25 kg/m2 Swollen legs Varicose veins or History of unexplained or recurrent spontaneous Oral contraceptives or hormone replacement Sepsis (< 1 month) Serious lung disease, including pneumonia (< 1 month) Abnormal pulmonary function Acute myocardial infarction Congestive heart failure (< 1 month) History of inflammatory bowel disease Medical patient at bed rest Age 61-74 Arthroscopic surgery Major open surgery (> 45 min) Laparoscopic surgery (> 45 min) Malignancy Confined to bed (> 72 hours) Immobilizing plaster cast Central venous access Age >= 75 History of VTE Family history of VTE Factor V Leiden Prothrombin [id number] Lupus anticoagulant Anticardiolipin antibodies Elevated serum homocysteine Heparin-induced thrombocytopenia Other congenital or acquired thrombophilia Stroke (< 1 month) Elective arthroplasty Hip, pelvis, or leg fracture Acute spinal cord injury (< 1 month) Prophylaxis Regimen Total Risk Factor Score Risk Level Prophylaxis Regimen 0-1 Low Early ambulation 2 Moderate Order ONE of the following: *Sequential Compression Device (SCD) *Heparin 5000 units SQ BID 3-4 Higher Order ONE of the following medications: *Heparin 5000 units SQ TID *Enoxaparin/Lovenox 40 mg SQ daily (WT < 150 kg, CrCl > 30 mL/min) *Enoxaparin/Lovenox 30 mg SQ daily (WT < 150 kg, CrCl > 10-29 mL/min) *Enoxaparin/Lovenox 30 mg SQ BID (WT < 150 kg, CrCl > 30 mL/min) AND/OR *Sequential Compression Device (SCD) 5 or more Highest Order ONE of the following medications: *Heparin 5000 units SQ TID (Preferred with Epidurals) *Enoxaparin/Lovenox 40 mg SQ daily (WT < 150 kg, CrCl > 30 mL/min) *Enoxaparin/Lovenox 30 mg SQ daily (WT < 150 kg, CrCl > 10-29 mL/min) *Enoxaparin/Lovenox 30 mg SQ BID (WT < 150 kg, CrCl > 30 mL/min) AND *Sequential Compression Device (SCD) Assessment and Plan Assessment and Plan * Chest pain: Patient will continue to have serial cardiac enzymes and EKGs for ruling out purposes. She will be seen by Dr. Rodriguez cardiology in the chest pain center. Likely will have a Lexiscan in the morning if she rules out. Patient to be discharged home if her stress test was nonischemic with instructions to follow-up with PCP. Return to ED for interval issues. * Pretension: Continue current medications. We'll continue to monitor vitals. * Hyperlipidemia: Patient is to continue statin therapy. * COPD: DuoNeb's when necessary. * Anxiety: Continue medication. Patient to continue current medication. She should discuss her medication with PCP as she really does not want to be on Xanax. Patient is stable to time. She is agreeable to this plan. iJmmy Dalal Mar 02, 2017 15:26
[2017-03-02] MEDS: PANTOPRAZOLE SOD 40 MG DELAYED RELEASE TAB PO SCH (15:28)
[2017-03-02] MEDS ORDERED: LISINOPRIL 10 MG TAB PO ONE (15:45)
[2017-03-02 16:58] LABS: TROPONIN I LESS THAN 0.02 NG/ML (0.02-0.05)
[2017-03-02] MEDS: ALPRAZolam 0.25 MG TAB PO SCH ×2 (17:29→20:20)
[2017-03-02] MEDS: METOPROLOL TARTRATE 50 MG TAB PO SCH (20:20)
[2017-03-02] MEDS: SODIUM CHLORIDE 0.9% FLUSH 10 ML FLUSH IV FLUSH SCH (20:21)
[2017-03-02] MEDS ORDERED: PRAVASTATIN SOD 40 MG TAB PO SCH (21:00)
[2017-03-02] MEDS ORDERED: LISINOPRIL 10 MG TAB PO SCH (21:00)
[2017-03-02 21:03] LABS: TROPONIN I LESS THAN 0.02 NG/ML (0.02-0.05)
[2017-03-03 03:49] VITALS: BP 123/59; PULSE 51; RESP 18; TEMP 98; O2SAT 95
[2017-03-03 07:00] VITALS: PULSE 49
[2017-03-03] MEDS: PANTOPRAZOLE SOD 40 MG DELAYED RELEASE TAB PO SCH (08:04)
[2017-03-03] MEDS: ALPRAZolam 0.25 MG TAB PO SCH (08:04)
[2017-03-03] MEDS: METOPROLOL TARTRATE 50 MG TAB PO SCH (08:05)
[2017-03-03] MEDS: SODIUM CHLORIDE 0.9% FLUSH 10 ML FLUSH IV FLUSH SCH (08:05)
[2017-03-03] MEDS ORDERED: ASPIRIN 325 MG TAB PO SCH (09:00)
[2017-03-03] MEDS ORDERED: REGADENOSON INJ 0.4 MG/5 ML SYR ONE (09:22)
--- NOTE | 2017-03-03 09:52 | EKG ---
Date Performed: 03/02/2017 Time Performed: 19:49:53 PTAGE: 76 years EKG: Sinus rhythm NORMAL ECG PREVIOUS TRACING : 03/02/2017 16.53 Since previous tracing, no significant change noted DOCTOR: Destin Stephens Interpretating Date/Time 03/03/2017 09:50:49
--- NOTE | 2017-03-03 09:53 | EKG ---
Date Performed: 03/02/2017 Time Performed: 16:53:19 PTAGE: 76 years EKG: SINUS BRADYCARDIA BORDERLINE ECG PREVIOUS TRACING : 03/02/2017 13.01 Since previous tracing, no significant change noted DOCTOR: Destin Stephens Interpretating Date/Time 03/03/2017 09:51:53
--- NOTE | 2017-03-03 09:54 | EKG ---
Date Performed: 03/02/2017 Time Performed: 13:01:27 PTAGE: 76 years EKG: Sinus rhythm WITH OCCASIONAL VENTRICULAR PREMATURE COMPLEXES BORDERLINE ECG PREVIOUS TRACING : 12/21/2016 12.34 Since previous tracing, no significant change noted DOCTOR: Destin Stephens Interpretating Date/Time 03/03/2017 09:53:21
--- NOTE | 2017-03-03 09:59 | TR ---
Date Performed: 03/03/2017 Time Performed: 09:25:21 DOCTOR: Destin Stephens DRUG LIST: ZOFRan METOPROLOL ASA [id number] CLINICAL HISTORY: SMOKER HTN COPD CHEST PAIN CHEST PAIN REASON FOR TEST: CHEST PAIN REASON FOR ENDING: OBSERVATION: CONCLUSION: Lexiscan stress test was performed under standard four minute protocol. Radionuclid e was injected one minute prior to ending the test. No electrocardiographic abormalities were present to suggest ischemia. Nuclear imaging and interpretation are pending. COMMENTS:
--- NOTE | 2017-03-03 10:38 | RADRPT ---
EXAM DATE/TIME: 03/03/2017 09:08 [facility] COMPARISON: No previous studies available for comparison. INDICATIONS : Substernal chest pain with dyspnea. Angina. DOSE: 25.4 mCi Tc99m Myoview at stress. 8.5 mCi Tc99m Myoview at rest. 0.4 mg Lexiscan STRESS SYMPTOMS: Dyspnea. EJECTION FRACTION: 68% MEDICAL HISTORY : Hypertension. Chronic obstructive pulmonary disease. SURGICAL HISTORY : section. Hysterectomy. ENCOUNTER: Initial ACUITY: 1 month PAIN SCALE: 7/10 LOCATION: Substernal chest TECHNIQUE: The patient underwent pharmacologic stress with infusion of prescribed dose. Continuous ECG tracing was monitored during stress. Gated SPECT imaging was performed after stress and conventional SPECT i maging was performed at rest. The examination was performed on a SPECT/CT scanner, both attenuation and non-corrected datasets were reviewed. FINDINGS: DISTRIBUTION: The maximum perfused segment at stress is in the anterior wall. PERFUSION STUDY: The pattern of perfusion at stress is within normal limits. GATED STUDY: There is intact wall motion and thickening without hypokinetic or dyskinetic segments. CONCLUSION: 1. Unremarkable myocardial perfusion scan. RISK CATEGORY: Low (<1% Annual Mortality Rate) Destin Kelly MD on March 03, 2017 at 10:35 Board Certified Radiologist. This report was verified electronically.
[2017-03-03 11:04] VITALS: BP 123/67; PULSE 68; RESP 18; TEMP 97.7; O2SAT 98
--- NOTE | 2017-03-03 11:17 | HHI.DCPOC ---
Discharge Care Plan Diagnosis: (1) Hyperlipidemia (2) Atypical chest pain (3) Anxiety Goals to Promote Your Health * To prevent worsening of your condition and complications * To maintain your health at the optimal level Directions to Meet Your Goals Take your medications as prescribed Follow your dietary instruction Follow activity as directed Keep your appointments as scheduled Take your immunizations and boosters as scheduled If your symptoms worsen call your PCP, if no PCP go to Urgent Care Center or Emergency Room Smoking is Dangerous to Your Health. Avoid second hand smoke Call the 24-hour hour crisis hotline for domestic abuse at Jimmy Dalal Mar 03, 2017 11:17
[2017-03-09] MEDS ORDERED: ALPR0.25 PO (11:35)
== END 2017-03-03 13:50 | disposition home or self-care (01) ==
LOC: NEPC 12:31 → NEDA 14:35 → NEPFCDU 15:36
PROVIDERS: ADMIT Internal Medicine Interventional Cardiology; ATTEND Internal Medicine Interventional Cardiology
DX: R07.89 Other chest pain (principal); E78.5 Hyperlipidemia, unspecified; J44.9 Chronic obstructive pulmonary disease, unspecified; F41.9 Anxiety disorder, unspecified; R20.0 Anesthesia of skin; R30.0 Dysuria; I10 Essential (primary) hypertension; R42 Dizziness and giddiness; M79.602 Pain in left arm; R06.02 Shortness of breath; Z87.891 Personal history of nicotine dependence; E78.00 Pure hypercholesterolemia, unspecified; R06.00 Dyspnea, unspecified
CPT/HCPCS: 70450; 71046; 72125; 78452; 80053; 81001; 82550; 83690; 83735; 84484; 85025; 85379; 85610; 85730; 93005; 93017; 96360; 96361; 99285; A9502; G0378; J2785; J7040; 82552

== ENCOUNTER 2017-07-07 07:51 | Emergency (ER) | payer MEDICARE ==
[2017-07-07] VITALS (8 sets, daily range): BP systolic 169–215; BP diastolic 77–101; PULSE 57–77; RESP 18–20; TEMP 97.4; O2SAT 20–100
[~2017-07-07] VITALS: Ht 160 cm; Wt 65.0 kg
[~2017-07-07 07:51] MED LIST changes: -SYMB160A INH
[2017-07-07] MEDS ORDERED: SYMB80AE INH (08:14)
[2017-07-07] MEDS ORDERED: SODIUM CHLOR 0.9% 1000 ML INJ 1,000 ML IV SCH (08:20)
--- NOTE | 2017-07-07 08:26 | PD ---
HPI Chief Complaint: Abdominal Pain Time Seen by Provider: 08:10 Travel History International Travel<30 days: No Contact w/Intl Traveler<30days: No Traveled to known affect area: No History of Present Illness HPI 76-year-old female complains of low abdominal pain and blood in the stool. Patient states that symptoms started yesterday. Patient states that the abdominal pain and cramping pain localized to lower abdomen. Patient denies any pain radiation. Patient denies any nausea vomiting diarrhea. Patient denies any dysuria frequency. Patient denies any vaginal discharge or bleeding. Patient denies fever chills. Patient on aspirin 81 mg daily. Patient has history hypertension and hyperlipidemia. Patient status post hysterectomy in the past. On a scale of 1-10 the pain is a 4. Patient states that she had colonoscopy done a year or 2 ago and had polyps removal during the process. Patient states that her blood pressure has been running high recently. PFSH Past Medical History Anxiety: Yes Cardiac Catheterization: Yes (8 YRS AGO) Cardiovascular Problems: Yes (HTN) High Cholesterol: Yes COPD: Yes Diabetes: No Diminished Hearing: No Hypertension: Yes Medical other: Yes (malignant abd mass ) Respiratory: Yes (COPD) Immunizations Current: No ?: Not Past Surgical History Abdominal Surgery: Yes (mass removed 2016) Section: Yes (2) Hysterectomy: Yes Other Surgery: Yes (NEGATIVE HEART CATH 5 TO 6 YEARS AGO) Family History Family Myocardial Infarction: Yes Social History Alcohol Use: No (SOC) Tobacco Use: No Substance Use: No Allergies-Medications (Allergen,Severity, Reaction): Coded Allergies: No Known Allergies (Unverified Allergy, Unknown, 03/09/17) Reported Meds & Prescriptions Reported Meds & Active Scripts Active Alprazolam 0.25 Mg Tab 0.25 Mg PO QID Reported Symbicort Inh (Budesonide/Formoterol Fumarate) 80-4.5 Mcg/Act Aero 1 Puff INH Q12HR Zocor (Simvastatin) 20 Mg Tab 40 Mg PO HS Lopressor (Metoprolol Tartrate) 50 Mg Tab 50 Mg PO BID Lisinopril 10 Mg Tab 10 Mg PO HS Aspirin Adult Low Strength (Aspirin) 81 Mg Tabdr 81 Mg PO DAILY Review of Systems General / Constitutional: No: Fever Eyes: No: Visual changes HENT: No: Headaches Cardiovascular: No: Chest Pain or Discomfort Respiratory: No: Shortness of Breath Gastrointestinal: Positive: Abdominal Pain, Hematochezia Genitourinary: No: Dysuria Musculoskeletal: No: Pain Skin: No Rash Neurologic: No: Weakness Psychiatric: No: Depression Endocrine: No: Polydipsia Hematologic/Lymphatic: No: Easy Bruising Physical Exam Narrative GENERAL: Well-nourished, well-developed patient. SKIN: Focused skin assessment warm/dry. HEAD: Normocephalic. EYES: No scleral icterus. No injection or drainage. NECK: Supple, trachea midline. No JVD or lymphadenopathy. CARDIOVASCULAR: Regular rate and rhythm without murmurs, gallops, or rubs. RESPIRATORY: Breath sounds equal bilaterally. No accessory muscle use. GASTROINTESTINAL: Abdomen soft, nondistended. Mild tenderness palpation lower abdomen. No rebound tenderness. No mass. Rectal exam Hemoccult negative. MUSCULOSKELETAL: No cyanosis, or edema. BACK: Nontender without obvious deformity. No CVA tenderness. Neurologic exam normal. Data Data Last Documented VS Vital Signs Date Time Temp Pulse Resp B/P (MAP) Pulse Ox O2 Delivery O2 Flow Rate FiO2 07/07/17 11:03 71 18 201/84 (123) 100 Room Air 07/07/17 07:54 97.4 Orders Orders Complete Blood Count With Diff (07/07/17 08:20) Comprehensive Metabolic Panel (07/07/17 08:20) Lipase (07/07/17 08:20) Prothrombin Time / Inr (Pt) (07/07/17 08:20) Act Partial Throm Time (Ptt) (07/07/17 08:20) Urinalysis - C+S If Indicated (07/07/17 08:20) Ct Abd/Pel W Iv Contrast(Rout) (07/07/17 08:20) Iv Access Insert/Monitor (07/07/17 08:20) Ecg Monitoring (07/07/17 08:20) Oximetry (07/07/17 08:20) Pantoprazole Inj (Protonix Inj) (07/07/17 08:30) Sodium Chlor 0.9% 1000 Ml Inj (Ns 1000 M (07/07/17 08:20) Sodium Chloride 0.9% Flush (Ns Flush) (07/07/17 08:30) Electrocardiogram (07/07/17 08:20) Chest, Single Ap (07/07/17 08:20) Iohexol 350 Inj (Omnipaque 350 Inj) (07/07/17 08:45) Hydralazine Inj (Apresoline Inj) (07/07/17 10:45) Piperacil-Tazo 3.375 Gm Premix (Zosyn 3. (07/07/17 10:45) Levofloxacin (Levaquin) (07/07/17 10:45) Labs Laboratory Tests Test 07/07/17 08:24 07/07/17 10:59 White Blood Count 12.6 TH/MM3 Red Blood Count 4.87 MIL/MM3 Hemoglobin 15.5 GM/DL Hematocrit 43.7 % Mean Corpuscular Volume 89.7 FL Mean Corpuscular Hemoglobin 31.9 PG Mean Corpuscular Hemoglobin Concent 35.5 % Red Cell Distribution Width 13.2 % Platelet Count 251 TH/MM3 Mean Platelet Volume 9.1 FL Neutrophils (%) (Auto) 82.9 % Lymphocytes (%) (Auto) 8.7 % Monocytes (%) (Auto) 7.1 % Eosinophils (%) (Auto) 1.0 % Basophils (%) (Auto) 0.3 % Neutrophils # (Auto) 10.5 TH/MM3 Lymphocytes # (Auto) 1.1 TH/MM3 Monocytes # (Auto) 0.9 TH/MM3 Eosinophils # (Auto) 0.1 TH/MM3 Basophils # (Auto) 0.0 TH/MM3 CBC Comment DIFF FINAL Differential Comment Prothrombin Time 9.7 SEC Prothromb Time International Ratio 1.0 RATIO Activated Partial Thromboplast Time 27.3 SEC Blood Urea Nitrogen 14 MG/DL Creatinine 0.92 MG/DL Random Glucose 94 MG/DL Total Protein 7.4 GM/DL Albumin 4.0 GM/DL Calcium Level 9.2 MG/DL Alkaline Phosphatase 83 U/L Aspartate Amino Transf (AST/SGOT) 34 U/L Alanine Aminotransferase (ALT/SGPT) 26 U/L Total Bilirubin 0.9 MG/DL Sodium Level 139 MEQ/L Potassium Level 4.1 MEQ/L Chloride Level 104 MEQ/L Carbon Dioxide Level 29.2 MEQ/L Anion Gap 6 MEQ/L Estimat Glomerular Filtration Rate 60 ML/MIN Lipase 129 U/L MDM Medical Decision Making Medical Screen Exam Complete: Yes Emergency Medical Condition: Yes Interpretation(s) Last Impressions Chest X-Ray 07/07/17 0820 Signed Impressions: Service Date/Time: Friday, July 07, 2017 08:21 - CONCLUSION: 1. No acute cardiopulmonary disease. Iam Vu MD 9:14 AM. CBC WBC 12.6. Hemoglobin 15.5 hematocrit 43.7. 82 neutrophil. CMP within normal limits. 10:[address] scan abdomen pelvis shows diverticulitis sigmoid colon. Pancreatic cystic mass. Differential Diagnosis Differential diagnosis including upper versus lower GI bleed, hemorrhoidal bleed , AV malformation, diverticulosis, diverticulitis. Narrative Course 76-year-old female with low abdominal pain and blood per stool. Zosyn 3.375 g IV given. Levaquin 750 mg p.o. given. Hydralazine 10 mg IV given. Diagnosis Primary Impression: Acute diverticulitis Additional Impression: Uncontrolled hypertension Patient Instructions: General Instructions Additional Instructions: Cipro and Flagyl as directed. Increase lisinopril to 20 mg daily. Continue with metoprolol as directed. Follow-up with personal physician for blood pressure check. Return if increased abdominal pain, persistent fever, persistent vomiting, persistent elevated blood pressure. Med/Other Pt SpecificInfo: Prescription(s) given Scripts Lisinopril (Lisinopril) 10 Mg Tab 20 MG PO DAILY, #60 TAB 0 Refills Prov: Marcos Perea MD 07/07/17 Metronidazole (Flagyl) 500 Mg Tab 500 MG PO TID for Infection, #30 TAB 0 Refills Prov: Marcos Perea MD 07/07/17 Ciprofloxacin (Cipro) 500 Mg Tab 500 MG PO BID for Infection, #20 TAB 0 Refills Prov: Marcos Perea MD 07/07/17 Disposition: 01 DISCHARGE HOME Condition: Stable Marcos Perea MD July 07, 2017 08:26
[2017-07-07] MEDS ORDERED: SODIUM CHLORIDE 0.9% FLUSH 10 ML FLUSH IV FLUSH PRN (08:30)
[2017-07-07] MEDS ORDERED: PANTOPRAZOLE SODIUM 40 MG VIAL IVP ONE (08:30)
[2017-07-07 08:36] LABS: AUTOMATED NEUTROPHIL # 10.5 TH/MM3 (1.8-7.7); BASOPHIL % 0.3 % (0.0-2.0); EOSINOPHIL # 0.1 TH/MM3 (0-0.4); HEMATOCRIT 43.7 % (35.0-46.0); HEMOGLOBIN 15.5 GM/DL (11.6-15.3); LYMPH % 8.7 % (9.0-44.0); LYMPHOCYTE # 1.1 TH/MM3 (1.0-4.8); MEAN CELL VOLUME 89.7 FL (80.0-100.0); MEAN CORPUSCULAR HEMOGLOBIN 31.9 PG (27.0-34.0); MEAN CORPUSCULAR HGB CONC 35.5 % (32.0-36.0); MEAN PLATELET VOLUME 9.1 FL (7.0-11.0); MONO % 7.1 % (0.0-8.0); MONOCYTE # 0.9 TH/MM3 (0-0.9); NEUT % 82.9 % (16.0-70.0); PLATELET COUNT 251 TH/MM3 (150-450); RED BLOOD COUNT 4.87 MIL/MM3 (4.00-5.30); RED CELL DISTRIBUTION WIDTH 13.2 % (11.6-17.2); WHITE BLOOD COUNT 12.6 TH/MM3 (4.0-11.0)
--- NOTE | 2017-07-07 08:36 | RADRPT ---
EXAM DATE/TIME: 07/07/2017 08:21 [facility] COMPARISON: CHEST PA & LAT, March 02, 2017, 13:44. CHEST SINGLE AP, December 21, 2016, 11:52. INDICATIONS : Chest pain and abdominal pain. MEDICAL HISTORY : Hypertension. anxiety SURGICAL HISTORY : Hysterectomy. ENCOUNTER: Initial ACUITY: 1 day PAIN SCORE: 7/10 LOCATION: Bilateral chest FINDINGS: A single view of the chest demonstrates the lungs to be symmetrically aerated without evidence of mas s, infiltrate or effusion. The cardiomediastinal contours are unremarkable. Stable chondroid type ca lcification projecting over the proximal right humerus. CONCLUSION: 1. No acute cardiopulmonary disease. Iam Vu MD on July 07, 2017 at 8:32 Board Certified Radiologist. This report was verified electronically.
[2017-07-07] MEDS ORDERED: IOHEXOL 350 MG/ML 10 ML VIAL (for RAD DIAG) IVCONTRAST ONE (08:45)
[2017-07-07 08:46] LABS: PROTHROMBIN TIME - PATIENT 9.7 SEC (9.8-11.6)
[2017-07-07 08:53] LABS: ALKALINE PHOSPHATASE 83 U/L (45-117); TOTAL BILIRUBIN ADULT 0.9 MG/DL (0.2-1.0); TOTAL PROTEIN 7.4 GM/DL (6.4-8.2)
[2017-07-07 08:55] LABS: ALT (GPT) 26 U/L (10-53); AST (GOT) 34 U/L (15-37); BICARBONATE 29.2 MEQ/L (21.0-32.0); BLOOD UREA NITROGEN 14 MG/DL (7-18); CALCIUM 9.2 MG/DL (8.5-10.1); CHLORIDE 104 MEQ/L (98-107); CREATININE 0.92 MG/DL (0.50-1.00); GLOMERULAR FILTRATION RATE 60 ML/MIN (>89); GLUCOSE,RANDOM 94 MG/DL (74-106); SODIUM (NA) 139 MEQ/L (136-145)
--- NOTE | 2017-07-07 10:07 | RADRPT ---
EXAM DATE/TIME: 07/07/2017 09:25 [facility] COMPARISON: No previous studies available for comparison. INDICATIONS : Lower abdominal pain, blood in stool. IV CONTRAST: 96 cc Omnipaque 350 (iohexol) IV ORAL CONTRAST: No oral contrast ingested. RADIATION DOSE: 8.49 CTDIvol (mGy) MEDICAL HISTORY : Hypertension. Cardiovascular disease SURGICAL HISTORY : Hysterectomy. ENCOUNTER: Initial ACUITY: 2 days PAIN SCALE: 4/10 LOCATION: Bilateral lower quadrant TECHNIQUE: Volumetric scanning of the abdomen and pelvis was performed. Using automated exposure control and ad justment of the mA and/or kV according to patient size, radiation dose was kept as low as reasonably achievable to obtain optimal diagnostic quality images. DICOM format image data is available electro nically for review and comparison. FINDINGS: Lower lungs are clear. The liver, spleen unremarkable There is cystic mass in the mid body of the pancreas measuring 1.6 cm that deserves further evaluatio n. I have no prior studies of this are comparison Adrenal glands are normal. There is symmetric renal function without mass. Moderate vascular chest cases and noted with minimal aneurysmal dilatation of the abdominal aorta to 2.7 cm In the pelvis multiple diverticuli are present in the sigmoid colon with minimal inflammatory changes in the mesentery suggesting diverticulitis. There is no abscess. There is no free air Review of bone windows reveals only degenerative changes. CONCLUSION: 1. Diverticulitis sigmoid colon with minimal fluid. There is no abscess as yet. There is no free ai r. 2. Small mass midbody pancreas that deserves further evaluation. 3. I have no prior studies for comparison. Channing Abreu MD FACR on July 07, 2017 at 10:00 Board Certified Radiologist. This report was verified electronically.
[2017-07-07] MEDS ORDERED: hydrALAZINE HCL 20 MG/ML VIAL IV PUSH ONE (10:45)
[2017-07-07] MEDS ORDERED: PIPERACIL-TAZO 3.375 GM PREMIX 50 ML IV ONE (10:45)
[2017-07-07] MEDS ORDERED: LEVOFLOXACIN 750 MG TAB PO ONE (10:45)
[2017-07-07] MEDS ORDERED: CIPR-9 PO (11:16)
[2017-07-07] MEDS ORDERED: METR-1 PO (11:16)
[2017-07-07] MEDS ORDERED: LISI10TA3 PO (11:16)
[2017-07-07 11:33] LABS: BILIRUBIN, URINE NEG (NEG); BLOOD, URINE NEG (NEG); GLUCOSE,URINE NEG (NEG); KETONE, URINE NEG (NEG); MUCUS URINE FEW /lpf (OCC); NITRITE,URINE NEG (NEG); PH, URINE 7.5 (5.0-8.5); URINE COLOR LIGHT-YELLOW (YELLW/STRAW); URINE LEUKOCYTE ESTERASE NEG (NEG)
--- NOTE | 2017-07-07 12:29 | EKG ---
Date Performed: 07/07/2017 Time Performed: 09:06:15 PTAGE: 76 years EKG: Sinus rhythm NORMAL ECG PREVIOUS TRACING : 03/02/2017 19.49 DOCTOR: Juma Medrano Interpretating Date/Time 07/07/2017 12:28:44
== END 2017-07-07 12:28 | disposition home or self-care (01) ==
LOC: NEPE 07:51
DX: K57.32 Diverticulitis of large intestine without perforation or abscess without bleeding (principal); I10 Essential (primary) hypertension; E78.00 Pure hypercholesterolemia, unspecified
CPT/HCPCS: 71045; 74177; 80053; 81001; 83690; 85025; 85610; 85730; 93005; 96374; 96375; 99284; C9113; J0360; J2543; J7030; Q9967